=== PATIENT | male | born 2000 | race Hispanic/Latino ===

== ENCOUNTER 2024-08-25 19:27 | Emergency (ER) | payer OTHER, SELFPAY ==
[2024-08-25] MEDS ORDERED: IBUPROFEN 400 MG TAB ONE (20:52)
--- NOTE | 2024-08-25 22:11 | RAD REPORT ---
EXAMINATION: Shoulder Right 2+ Views CLINICAL INDICATION: Male, 24 years old. fall;Pain RIGHT COMPARISON: No prior exam. FINDINGS: No acute fracture. No malalignment/dislocation. No significant focal degenerative change. Other: n/a IMPRESSION: No acute osseous abnormality.
--- NOTE | 2024-08-25 22:50 | EDPHYS ---
Physician Documentation [facility] Name: Jose Cannon Jr Age: 24 yrs Sex: Male : 2000 Arrival Date: 08/25/2024 Time: 19:27 Bed 11 Private MD: ED Physician Jared Christopher HPI: 08/25 19:55 This 24 yrs old Male presents to ER via Unassigned with complaints of Shoulder cp Injury. 19:55 The patient or guardian complains of an injury, pain, that is acute. right shoulder. cp Context: resulted from a fall, while paintballin, The patient reports no decreased range of motion. The patient reports no obvious deformity. Onset: The symptoms/episode began/occurred today. Historical: - Allergies: 20:28 No Known Allergies; tm6 - PMHx: 20:28 None; tm6 - PSHx: 20:28 None; tm6 - Immunization history:: Flu vaccine is up to date. - Infectious Disease History:: Denies. - Social history:: Smoking status: Reported history of juuling and/or vaping. ROS: 20:00 MS/extremity: Positive for pain, of the right shoulder, cp 20:00 Eyes: Negative for injury, pain, redness, and discharge, cp 20:00 Constitutional: Negative for body aches, chills, fever, poor PO intake, 20:00 Neck: Negative for pain with movement, pain at rest, stiffness, 20:00 Cardiovascular: Negative for chest pain, palpitations, 20:00 Respiratory: Negative for cough, shortness of breath, wheezing, 20:00 Abdomen/GI: Negative for abdominal pain, vomiting, diarrhea, constipation, 20:00 All other systems are negative, cp Exam: 20:05 Constitutional: The patient appears in no acute distress, alert, awake, non-toxic, well cp developed, well nourished, 20:05 Head/Face: Normocephalic, atraumatic. cp 20:05 Neck: C-spine: vertebral tenderness, is not appreciated, crepitus, is not appreciated, ROM/movement: is normal, is supple, without pain, no range of motions limitations, 20:05 Chest/axilla: Inspection: normal, Palpation: is normal, no crepitus, no tenderness, 20:05 Cardiovascular: Rate: normal, Rhythm: regular, 20:05 Respiratory: the patient does not display signs of respiratory distress, Respirations: normal, no use of accessory muscles, no retractions, labored breathing, is not present, Breath sounds: are clear throughout, no decreased breath sounds, no stridor, no wheezing, 20:05 Abdomen/GI: Exam negative for discomfort, distension, guarding, Inspection: abdomen appears normal, 20:05 Back: pain, is absent, ROM is normal, 20:05 Musculoskeletal/extremity: Extremities: noted in the right shoulder: tenderness and pain noted to right AC joint, full AROM right shoulder, Pulses: noted to be 2+ in the right radial artery, the right hand and right arm Sensation intact. Vital Signs: 20:27 BP 153 / 93; Pulse 62; Resp 18; Temp 97.9(TE); Pulse Ox 100% on R/A; MAP 110 mmHg; tm6 Weight 83.01 kg; Height 5 ft. 7 in. ; Pain 5/10; 23:13 BP 147 / 89; Pulse 66; Resp 17 S; Temp 98.1(O); Pulse Ox 100% on R/A; lg3 20:27 Body Mass Index 28.66 (83.01 kg, 170.18 cm) tm6 20:27 Pain Scale: Adult tm6 MDM: 22:00 Differential diagnosis: tendonitis, AC joint sprain, AC joint separation, Humerus cp fracture, clavicle fracture. 22:49 Medical Screening Exam initiated 22:49 Data reviewed: vital signs, nurses notes, radiologic studies, plain films. 22:49 I considered the following discharge prescriptions or medication management in the emergency department Medications were administered in the Emergency Department. See MAR. 22:49 Counseling: I had a detailed discussion with the patient and/or guardian regarding the historical points, exam findings, and any diagnostic results supporting the discharge/admit diagnosis, radiology results, the need for outpatient follow up, a orthopedic surgeon, to return to the emergency department if symptoms worsen or persist or if there are any questions or concerns that arise at home. Response to treatment: the patient's symptoms have mildly improved after treatment, and as a result, I will discharge patient. 08/25 19:39 Order name: XRAY Shoulder RIGHT 2 view; Complete Time: 22:48 08/25 22:48 Interpretation: Reviewed. cp Administered Medications: 21:00 Drug: Ibuprofen PO 800 mg PO once Route: PO; lg3 23:12 Follow up: Response: No adverse reaction; Marked relief of symptoms lg3 Disposition: 08/26 18:28 Co-signature as Attending Physician, Jared Christopher MD I agree with the assessment sp4 and plan of care. I reviewed the patient's care provided by the Advanced Practice Provider and agree with the diagnosis and treatment plan. Disposition Summary: 08/25/24 22:49 Discharge Ordered Notes: Location: Home cp Problem: new cp Symptoms: have improved cp Condition: Stable cp Diagnosis - Sprain of right acromioclavicular joint, initial encounter cp Followup: cp - With: Gulshan Lamb MD - When: 1 week - Reason: pain continues Discharge Instructions: - Discharge Summary Sheet cp - Shoulder Pain cp - Shoulder Range of Motion Exercises cp Forms: - Medication Reconciliation Form cp - Antibiotic Education cp - Prescription Opioid Use cp - Patient Portal Instructions cp - Leadership Thank You Letter cp Prescriptions: - Anaprox DS 550 mg Oral Tablet - take 1 tablet ORAL route every 12 hours As needed; 20 tablet; Refills: 0, cp Product Selection Permitted Signatures: Dispatcher [employer] EDMS Jovanni Cardenas PA PA cp Able, Lacie RN RN lg3 Jared Christopher MD MD sp4 Clarence Vgoel RN RN tm6 Corrections: (The following items were deleted from the chart) 08/25 19:39 19:39 Shoulder Right 2 View+RAD.RAD.BRZ ordered. EDMS EDMS 21:56 21:48 Shoulder Right 2 View+RAD.RAD.BRZ ordered. EDMS EDMS
--- NOTE | 2024-08-25 22:50 | ER ---
Nurse's Notes [facility] Name: Jose Cannon Jr Age: 24 yrs Sex: Male : 2000 Arrival Date: 08/25/2024 Time: 19:27 Bed 11 Private MD: Diagnosis: Sprain of right acromioclavicular joint, initial encounter Presentation: 08/25 20:29 Chief complaint: Patient states: today around 3pm I fell on right shoulder, it has been tm6 hurting ever since. Moving it certain ways is a problem. Coronavirus screen: Client denies travel out of the [place] in the last 14 days. Ebola Screen: Patient negative for fever greater than or equal to 101.5 degrees Fahrenheit, and additional compatible Ebola Virus Disease symptoms Patient denies exposure to infectious person. Patient denies travel to an Ebola-affected area in the 21 days before illness onset. No symptoms or risks identified at this time. Initial Sepsis Screen: Does the patient meet any 2 criteria? No. Patient's initial sepsis screen is negative. Does the patient have a suspected source of infection? No. Patient's initial sepsis screen is negative. Risk Assessment: Do you want to hurt yourself or someone else? Patient reports no desire to harm self or others. Onset of symptoms was August 25, 2024. 20:29 Method Of Arrival: Ambulatory tm6 20:29 Acuity: PAMELLA 4 tm6 Triage Assessment: 20:29 General: Appears in no apparent distress. Behavior is calm, cooperative. Pain: tm6 Complains of pain in right arm Pain currently is 5 out of 10 on a pain scale. Pain began 4 hours ago. EENT: No signs and/or symptoms were reported regarding the EENT system. Neuro: Level of Consciousness is awake, alert, obeys commands, Oriented to person, place, time, situation. Cardiovascular: Patient's skin is warm and dry. Respiratory: Airway is patent Respiratory effort is even, unlabored, Respiratory pattern is regular, symmetrical. GI: No signs and/or symptoms were reported involving the gastrointestinal system. Abdomen is flat, non-distended. : No signs and/or symptoms were reported regarding the genitourinary system. Derm: No signs and/or symptoms reported regarding the dermatologic system. Musculoskeletal: Reports pain in right arm. Historical: - Allergies: 20:28 No Known Allergies; tm6 - PMHx: 20:28 None; tm6 - PSHx: 20:28 None; tm6 - Immunization history:: Flu vaccine is up to date. - Infectious Disease History:: Denies. - Social history:: Smoking status: Reported history of juuling and/or vaping. Screenin:[address] [facility] ED Fall Risk Assessment (Adult) History of falling in the last 3 months, lg3 including since admission No falls in past 3 months (0 pts) Confusion or Disorientation No (0 pts) Intoxicated or Sedated No (0 pts) Impaired Gait No (0 pts) Mobility Assist Device Used No (0 pt) Altered Elimination No (0 pt) Score/Fall Risk Level 0 - 2 = Low Risk Oriented to surroundings, Maintained a safe environment, Educated pt \T\ family on fall prevention, incl call for assistance when getting out of bed, Assessed \T\ reinforced patient's understanding of fall precautions. Abuse screen: Denies threats or abuse. Denies injuries from another. Nutritional screening: No deficits noted. Tuberculosis screening: No symptoms or risk factors identified. Assessment: 23:13 General: Appears in no apparent distress. comfortable, Behavior is calm, cooperative. lg3 Pain: Complains of pain in right shouler Pain does not radiate. Pain currently is 2 out of 10 on a pain scale. Aggravated by movement. Neuro: No deficits noted. Beavers Agitation-Sedation Scale (RASS): 0 - Alert and Calm Level of Consciousness is awake, alert, obeys commands, Oriented to person, place, time, situation. Cardiovascular: No deficits noted. Denies chest pain, shortness of breath, Capillary refill < 3 seconds Clubbing of nail beds is absent JVD is absent Patient's skin is warm and dry. Respiratory: No deficits noted. Airway is patent Respiratory effort is even, unlabored, Respiratory pattern is regular, symmetrical. GI: No deficits noted. No signs and/or symptoms were reported involving the gastrointestinal system. : No signs and/or symptoms were reported regarding the genitourinary system. EENT: No deficits noted. No signs and/or symptoms were reported regarding the EENT system. Derm: No deficits noted. No signs and/or symptoms reported regarding the dermatologic system. Skin is intact, is healthy with good turgor, Skin is dry, Skin is normal, Skin temperature is warm. Musculoskeletal: Circulation, motion, and sensation intact. Range of motion: intact in all extremities, Reports pain in right shoulder. Vital Signs: 20:27 BP 153 / 93; Pulse 62; Resp 18; Temp 97.9(TE); Pulse Ox 100% on R/A; MAP 110 mmHg; tm6 Weight 83.01 kg; Height 5 ft. 7 in. ; Pain 5/10; 23:13 BP 147 / 89; Pulse 66; Resp 17 S; Temp 98.1(O); Pulse Ox 100% on R/A; lg3 20:27 Body Mass Index 28.66 (83.01 kg, 170.18 cm) tm6 20:27 Pain Scale: Adult tm6 ED Course: 19:31 Patient arrived in ED. im 19:32 Jovanni Cardenas PA is PHCP. cp 19:32 Jared Christopher MD is Attending Physician. cp 20:29 Arm band placed on left wrist. tm6 20:30 Triage completed. tm6 21:57 XRAY Shoulder RIGHT 2 view In Process Unspecified. EDMS 22:49 Gulshan Lamb MD is Referral Physician. cp 23:13 Patient has correct armband on for positive identification. Door closed. Noise lg3 minimized. Warm blanket given. Pillow given. Family accompanied patient. 23:13 No provider procedures requiring assistance completed. Patient did not have IV access lg3 during this emergency room visit. Administered Medications: 21:00 Drug: Ibuprofen PO 800 mg PO once Route: PO; lg3 23:12 Follow up: Response: No adverse reaction; Marked relief of symptoms lg3 Medication: 23:13 VIS not applicable for this client. lg3 Outcome: 22:49 Discharge ordered by . cp 23:13 Discharged to home ambulatory, lg3 23:13 Condition: stable 23:13 Discharge instructions given to patient, Instructed on discharge instructions, follow up and referral plans. medication usage, Demonstrated understanding of instructions, follow-up care, medications, Prescriptions given X 1, 23:17 Patient left the ED. lg3 Signatures: Dispatcher [employer] EDMS Jovanni Cardenas PA PA cp Able, Lacie, RN RN lg3 Sisi Montoya Tawney, RN RN tm6
[2024-08-26 01:52] VITALS: O2SAT 100
[2024-08-26 01:53] VITALS: BP 147/89; TEMP 98.1
== END 2024-08-25 23:17 | disposition home or self-care (01) ==
LOC: ER 19:27
DX: S43.51XA Sprain of right acromioclavicular joint, initial encounter (principal)
CPT/HCPCS: 99283